=== PATIENT | female | born 1965 | race Caucasian/White ===

== ENCOUNTER → 2016-08-06 | Day surgery (SDC) | payer MEDICARE ==
[~2016-08-06] MED LIST: LACTATED RINGER'S 1000 ML INJ 1,000 ML ONE; PROPOFOL 500 MG/50 ML BTL IV ONE
--- NOTE | 2016-08-06 11:57 | GIPROC ---
[facility] [address] [facility], [address] COLONOSCOPY PROCEDURE REPORT EXAM DATE: 08/06/2016 PATIENT NAME: Christina Castro MR #: [id number] BIRTHDATE: 1965 ENDOSCOPIST: Harvinder Raymond MD ORDER #: [id number] PROGRAMMER: Brooklynn Anderson RN STATUS: outpatient INDICATIONS: The patient is a 50 yr old female here for a colonoscopy due to average risk patient for colon cancer PROCEDURE PERFORMED: Colonoscopy with biopsy MEDICATIONS: None and Per Anesthesia. PREP QUALITY: good ESTIMATED BLOOD LOSS: None CONSENT: The patient understands the risks and benefits of the procedure and understands that these risks include, but are not limited to: sedation, allergic reaction, infection, perforation and/or bleeding. Alternative means of evaluation and treatment include, among others: physical exam, x-rays, and/or surgical intervention. The patient elects to proceed with this endoscopic procedure. medical equipment was checked for proper function. Hand hygiene and appropriate measures for infection prevention was taken. After the risks, benefits and alternatives of the procedure were thoroughly explained, Informed consent was verified, confirmed and timeout was successfully executed by the treatment team. A digital exam revealed no abnormalities of the rectum The EC-3490Li ([id number]) endoscope was introduced through the anus and advanced to the cecum, which was identified by both the appendix and ileocecal valve. The instrument was then slowly withdrawn as the colon was fully examined. COLON FINDINGS: Small lipoma was found in the transverse colon. Multiple biopsies were performed. The colon mucosa was otherwise normal. Retroflexed views revealed no abnormalities The scope was then completely withdrawn from the patient and the procedure terminated. PROCEDURE WITHDRAWAL TIME:9.5minutes ADVERSE EVENTS: There were no complications. IMPRESSIONS: 1. Small lipoma in the transverse colon; multiple biopsies were performed 2. The colon mucosa was otherwise normal 3. Retroflexed views revealed no abnormalities 4. Revealed no abnormalities of the rectum RECOMMENDATIONS: 1. Await biopsy results. Biopsy results will not be ready for 7-10 days. If you don't hear from us in two weeks, call our office for results. 2. Yearly hemoccult 3. High fiber diet 4. Follow-up: GI Clinic PRN RECALL: Return 10 years Colonoscopy Harvinder Raymond MD eSigned: Harvinder Raymond MD 08/06/2016 11:56 AM cc: Richelle Small M.D and Scotty Singleton [facility]
--- NOTE | 2016-08-06 11:59 | GIPROC ---
[facility] [address] [facility], [address] EGD PROCEDURE REPORT EXAM DATE: 08/06/2016 PATIENT NAME: Christina Castro MR #: [id number] BIRTHDATE: 1965 ATTENDING: Harvinder Raymond MD ORDER #: [id number] [employer] OPERATOR: Brooklynn Anderson RN STATUS: outpatient INDICATIONS: The patient is a 50 yr old female here for an EGD due to anemia PROCEDURE PERFORMED: EGD w/ biopsy MEDICATIONS: None, Per Anesthesia, None, and Per Anesthesia. TOPICAL ANESTHETIC: CONSENT: The patient understands the risks and benefits of the procedure and understands that these risks include, but are not limited to: sedation, allergic reaction, infection, perforation and/or bleeding. Alternative means of evaluation and treatment include, among others: physical exam, x-rays, and/or surgical intervention. The patient elects to proceed with this endoscopic procedure. medical equipment was checked for proper function. Hand hygiene and appropriate measures for infection prevention was taken. After the risks, benefits and alternatives of the procedure were thoroughly explained, Informed consent was verified, confirmed and timeout was successfully executed by the treatment team. The patient was anesthetized with topical anesthesia and the EC-3490Li ([id number]) endoscope was introduced through the mouth and advanced to the second portion of the duodenum. Retroflexed views revealed no abnormalities The gastroscope was then slowly withdrawn and removed. STOMACH: There was mild gastritis in the gastric antrum. Multiple biopsies were performed. The endoscopy was otherwise normal. DUODENUM: The duodenal mucosa appeared normal. Cold forcep biopsies were taken in the second portion. ADVERSE EVENTS: There were no complications. IMPRESSIONS: 1. There was mild gastritis in the gastric antrum; multiple biopsies were performed 2. Normal endoscopy otherwise 3. Normal duodenal mucosa 4. Retroflexed views revealed no abnormalities RECOMMENDATIONS: 1. Await biopsy results. Biopsy results will not be ready for 7-10 days. If you don't hear from us in two weeks, call our office for biopsy results. 2. Follow-up: GI clinic 4 week(s) 3. CBC prior office visit PATIENT CONDITION: stable DISPOSITION: Home REPEAT EXAM: Harvinder Raymond MD eSigned: Harvinder Raymond MD 08/06/2016 11:59 AM cc: Richelle Singleton [facility]
== END | disposition home or self-care (01) ==
LOC: ESDC 09:51
PROVIDERS: ATTEND Internal Medicine Gastroenterology
DX: Z12.11 Encounter for screening for malignant neoplasm of colon (principal); D64.9 Anemia, unspecified; D17.79 Benign lipomatous neoplasm of other sites; K29.70 Gastritis, unspecified, without bleeding
CPT/HCPCS: 00740; 00810; 43239; 45380; 88305; 88312; J3010; J7120